=== PATIENT | female | born 1985 | race Caucasian/White ===

== ENCOUNTER → 2016-08-26 | Outpatient (CLI) | payer SELFPAY ==
[~2016-08-26] MED LIST: AGM875T PO; AMOX-358 PO; BIRTH CONTROL; BSP10T PO; BUTA1CAP39 PO; CELEXA; CYCL10TA9 PO; GABA-488 PO; HYDR-3812 PO; LEVE500T99 PO; MULT1CAP27 PO
--- NOTE | 2016-08-26 14:40 | Diagnostic Imaging Report ---
First trimester OB ultrasound. INDICATION: Dating. FINDINGS: There is a normal-appearing single intrauterine . An embryo is seen with cardiac activity at 169 beats per minute. The crown-rump length is at 10 weeks and 5 days. ABIMAEL is 03/19/17. The ovaries are from not demonstrated, likely obscured by bowel gas. IMPRESSION: Live single intrauterine . Dictated by: Dictated on workstation # [id number]
== END ==
LOC: RAD 13:33
PROVIDERS: ATTEND Family Medicine
DX: Z36 Encounter for antenatal screening of mother (principal); Z3A.10 10 weeks gestation of pregnancy
CPT/HCPCS: 76801

== ENCOUNTER → 2016-10-29 | Outpatient (CLI) | payer MEDICAID ==
[2016-10-30 07:28] LABS: HIV AG AB SCREEN Non-Reactive (Non-Reactive)
== END ==
LOC: LAB 09:32
PROVIDERS: ATTEND Family Medicine
DX: Z34.91 Encounter for supervision of normal pregnancy, unspecified, first trimester (principal); Z3A.13 13 weeks gestation of pregnancy
CPT/HCPCS: 36415; 84443; 86703; 87088; 87340

== ENCOUNTER → 2016-10-31 | Outpatient (CLI) | payer MEDICAID, OTHER ==
--- NOTE | 2016-10-31 13:10 | Diagnostic Imaging Report ---
INDICATION: survey. TECHNIQUE: Multiple real-time grayscale images were obtained over the gravid uterus. COMPARISON: 08/26/2016. FINDINGS: Single live intrauterine is again demonstrated at 20 weeks 2 days by sonographic measurements. Appropriate interval growth. EDC by today's ultrasound is 03/18/2017. presentation is cephalic. Normal amniotic fluid index. Grade 1 placenta is located posteriorly with no placenta previa. heart rate measures 155 beats per minute. Good visualization of the kidneys, bladder, stomach, brain, four-chamber heart, three-vessel cord and insertion, and extremities. The entire spine was not well visualized due to positioning. Recommend short-term sonographic followup. Biometrical measurements are as follows: Biparietal 4.70 cm, age 20 weeks 2 days. Head circumference 17.08 cm, age 19 weeks 5 days. Abdominal circumference 15.45 cm, age 20 weeks 5 days. Femur length 3.22 cm, age 20 weeks 1 days. Sonographic estimate age: 20 weeks 2 days. Sonographic estimated date of delivery: 03/18/2017. Estimated Weight: 344 gm (+/- 50 gm). LMP percentile: 54%. heart rate: 155 beats per minute. number: 1 of 1. IMPRESSION: Single live intrauterine at 20 weeks 2 days by sonographic measurements. Poor visualization of the spine due to positioning. Recommend short-term sonographic followup. The remainder of the anatomical survey appears within normal sonographic limits. Dictated by: Dictated on workstation # [id number]
== END ==
LOC: RAD 11:29
PROVIDERS: ATTEND Family Medicine
DX: Z36 Encounter for antenatal screening of mother (principal); Z3A.20 20 weeks gestation of pregnancy
CPT/HCPCS: 76805

== ENCOUNTER → 2016-12-18 | Outpatient (CLI) | payer MEDICAID, OTHER ==
--- NOTE | 2016-12-18 17:55 | Diagnostic Imaging Report ---
INDICATION: Incomplete anatomical evaluation on prior imaging. TECHNIQUE: Multiple, limited real-time grayscale images were obtained over the gravid uterus. COMPARISON: 10/31/2016. FINDINGS: Limited obstetrical sonogram imaging demonstrates a fetus to be in a cephalic presentation. Amount of amniotic fluid appearing to be unremarkable. cardiac activity at 146 beats per minute. The spine is visualized on current study and appears unremarkable. Additional anatomical assessment are not performed. Biometrical growth parameters are not performed. IMPRESSION: Single intrauterine in a cephalic presentation. Limited obstetrical sonogram demonstrates unremarkable appearance about the spine on followup. Dictated by: Dictated on workstation # [id number]
== END ==
LOC: RAD 14:20
PROVIDERS: ATTEND Family Medicine
DX: Z36 Encounter for antenatal screening of mother (principal); Z3A.00 Weeks of gestation of pregnancy not specified
CPT/HCPCS: 76816

== ENCOUNTER 2017-05-01 08:06 | Outpatient (CLI) | payer MEDICAID ==
[~2017-05-01] VITALS: Ht 157.5 cm; Wt 54.0 kg
[2017-05-01 08:23] VITALS: BP 112/67
[2017-05-01] MEDS ORDERED: DIVA250T2 PO (09:56)
[2017-05-01] MEDS ORDERED: FLUO20CA42 PO (09:56)
== END 2017-05-01 10:01 | disposition home or self-care (01) ==
LOC: PREOP 08:06
PROVIDERS: ATTEND Obstetrics & Gynecology
DX: Z01.818 Encounter for other preprocedural examination (principal); N81.4 Uterovaginal prolapse, unspecified; R32 Unspecified urinary incontinence; D64.9 Anemia, unspecified
CPT/HCPCS: 87081

== ENCOUNTER → 2017-05-04 | Day surgery (SDC) | payer MEDICAID ==
[~2017-05-04] VITALS: Ht 157.5 cm; Wt 54.0 kg
[~2017-05-04] MED LIST changes: +CATHETER FLUSH 10 ML SYR IV PRN; +DIVA250T2 PO; +FLUO20CA42 PO; +LACTATED RINGERS 1,000 ML IV PRN; +ceFAZolin 1 GM/NS 50 ML IVPB IV ONE
[2017-05-04 10:50] VITALS: BP 118/83
--- OUTSIDE RECORDS SUMMARY | 2017-05-04 10:56 | XMS REPORT ---
Author Author JACE LUTZ [facility] eClinicalWorks Address Unknown Phone Unavailable Care Team Providers Care Retail Grocer Name Role Phone JACE LUTZ Unavailable Allergies No Known Allergies Problems Problem Type Condition Code Onset Dates Condition Status Problem Thyroid disease 246.9 Active Problem Seizure 780.39 Active Problem Eye socket infection 376.00 Active Problem Bipolar disorder 296.80 Active Problem History of intravenous drug use in remission 305.93 Active Medications Medication Code System Code Instructions Start Date End Date Status Dosage Zofran ODT [facility] [address]-43 4 MG Orally every 6 hrs December 05, 2014 1 tablet on the tongue and allow to dissolve Results No Known Results Summary Purpose eClinicalWorks Submission
--- OUTSIDE RECORDS SUMMARY | 2017-05-04 10:56 | XMS REPORT | Clinical Summary ---
Author Author [facility] Address Unknown Phone Unavailable Allergies No Known Allergies Current Medications Prescription Sig. Disp. Refills Start End Date Status Date Multiple Vitamin take 1 tablet by oral 0 08/28/19 Active (MULTI-VITAMINS) TABS route every day with 11 food .reconcile (MEDICATION No Sig 1 0 11/20/19 Active LIST IMPORTED) 13 Active Problems Problem Noted Date Toxic diffuse goiter without mention of thyrotoxic crisis or storm Immunizations Name Dates Previously Given Next Due Influenza IIV3 PFree 02/22/2009 Tdap 01/29/2010 Social History Tobacco Use Types Packs/Day Years Used Date Current Every Day Smoker Comments: Smoking History Packs/day: Unknown/Cigarettes/1/2 pack Sex Assigned at Date Recorded Not on file Last Filed Vital Signs Vital Sign Reading Time Taken Blood Pressure 100/64 09/11/2010 1:50 PM CDT Pulse - - Temperature - - Respiratory Rate - - Oxygen Saturation - - Inhaled Oxygen - - Concentration Weight 45.8 kg (101 lb) 09/11/2010 1:50 PM CDT Height - - Body Mass Index - - Plan of Treatment Health Maintenance Due Date Last Done Comments Varicella Vaccines (1 of 09/25/2000 2 - 2 Dose Adolescent Series) CERVICAL CANCER SCREENING 06/27/2012 06/27/2009 Influenza Vaccine (#1) 2017 02/22/2009 DTaP,Tdap,and Td Vaccines 01/30/2020 01/29/2010 (2 - Td) Results Not on filefrom Last 3 Months
--- OUTSIDE RECORDS SUMMARY | 2017-05-04 10:56 | XMS REPORT ---
Author Author GAETANO DACOSTA Organization [facility] Address [address] [place] [address] Care Team Providers Care General Production Laborer Name Role Phone GAETANO DACOSTA Unavailable PROBLEMS Type Condition ICD9-CM Code [id number] Code Onset Dates Condition Status SNOMED Code Problem Thyroid disease E07.9 Active 08201850 Problem Anxiety F41.9 Active 91772345 Problem History of herpes genitalis Z86.19 Active 413492154 Problem History of intravenous drug use in remission Z87.898 Active 80548877 Problem Ruptured globe, right eye S05.31XA Active 817516795 Problem Seizure disorder G40.909 Active 539623248 Problem Bipolar disorder F31.9 Active 35662666 ALLERGIES Unknown Allergies SOCIAL HISTORY No smoking Hx information available PLAN OF CARE VITAL SIGNS MEDICATIONS Unknown Medications RESULTS No Results PROCEDURES No Known procedures IMMUNIZATIONS No Known Immunizations
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
--- OUTSIDE RECORDS SUMMARY | 2017-05-04 10:56 | XMS REPORT ---
Author Author CANDIE VYAS [facility] Address [address] [place] [address] Care Team Providers Care Salmon Troll Fisher Name Role Phone CANDIE VYAS Unavailable PROBLEMS Type Condition ICD9-CM Code [id number] Code Onset Dates Condition Status SNOMED Code Problem History of herpes genitalis Z86.19 Active 994428898 Problem Seizure disorder G40.909 Active 468569619 Problem Ruptured globe, right eye S05.31XA Active 479333979 Problem Thyroid disease E07.9 Active 08404689 Problem Bipolar disorder F31.9 Active 08920342 Problem History of intravenous drug use in remission Z87.898 Active 46449986 ALLERGIES Unknown Allergies SOCIAL HISTORY No smoking Hx information available PLAN OF CARE VITAL SIGNS MEDICATIONS Medication Instructions Dosage Frequency Start Date End Date Duration Status Acyclovir 400 MG Orally four times a day 1 tablet 6h 20 Jan, 2016 7 day (s) Active RESULTS No Results PROCEDURES No Known procedures IMMUNIZATIONS No Known Immunizations
--- OUTSIDE RECORDS SUMMARY | 2017-05-04 10:56 | XMS REPORT ---
Author Author LISSETTE DAVIS [facility] eClinicalWorks Address Unknown Phone Unavailable Care Team Providers Care Cut Order Hand Name Role Phone LISSETTE DAVIS Unavailable Allergies No Known Allergies Problems Problem Type Condition Code Onset Dates Condition Status Problem Seizure disorder G40.909 Active Problem Bipolar disorder F31.9 Active Problem History of herpes genitalis Z86.19 Active Problem Thyroid disease E07.9 Active Problem History of intravenous drug use in remission Z87.898 Active Problem Ruptured globe, right eye S05.31XA Active Medications No Known Medications Results No Known Results Summary Purpose eClinicalWorks Submission
--- OUTSIDE RECORDS SUMMARY | 2017-05-04 10:56 | XMS REPORT ---
Author Author ABEBE MCMAHON [facility] Address Unknown Phone Unavailable Care Team Providers Care Mechanical Design Engineer Name Role Phone ABEBE MCMAHON Unavailable Unavailable PROBLEMS Type Condition ICD9-CM Code [id number] Code Onset Dates Condition Status SNOMED Code Problem Bipolar disorder F31.9 Active 06679963 Problem History of intravenous drug use in remission Z87.898 Active 68498668 Problem Herpesviral infection, unspecified B00.9 Active 94345991 Problem Anxiety F41.9 Active 51671142 Problem Thyroid disease E07.9 Active 45951161 Problem Seizure disorder G40.909 Active 094857542 Problem History of herpes genitalis Z86.19 Active 871523786 Problem Ruptured globe, right eye S05.31XA Active 959749832 ALLERGIES Unknown Allergies SOCIAL HISTORY No smoking Hx information available PLAN OF CARE VITAL SIGNS MEDICATIONS Unknown Medications RESULTS No Results PROCEDURES No Known procedures IMMUNIZATIONS No Known Immunizations
--- OUTSIDE RECORDS SUMMARY | 2017-05-04 10:56 | XMS REPORT | Clinical Summary ---
Author Author [facility] Organization [facility] Address Unknown Phone Unavailable Care Team Providers Care Plastic Technician Name Role Phone PCP Unavailable Source Comments Some departments are not documenting in the electronic medical record. 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 Ruptured globe of right eye 09/30/2013 Ruptured globe of right eye 09/29/2013 Overview: Corneal laceration s/p repair Family History Medical History Relation Name Comments Cancer Maternal Grandmother Diabetes Maternal Grandmother Diabetes Mother Relation Name Status Comments Maternal Grandmother Mother Social History Tobacco Use Types Packs/Day Years Used Date Current Every Day Smoker Cigarettes 1 12 Smokeless Tobacco: Never Used Alcohol Use Drinks/Week oz/Week Comments Yes .25 Standard 0.0 drinks or equivalent Sex Assigned at Date Recorded Not on file Last Filed Vital Signs Vital Sign Reading Time Taken Blood Pressure 106/63 06/02/2014 10:02 AM QUILL COLLECTOR Pulse 58 12/30/2013 8:30 PM CDT Temperature 36.7 C (98.1 F) 12/30/2013 8:15 PM CDT Respiratory Rate - - Oxygen Saturation 97% 12/30/2013 8:30 PM CDT Inhaled Oxygen - - Concentration Weight 55.5 kg (122 lb 5.7 oz) 12/30/2013 1:56 PM CDT Height 154.9 cm (5' 1") 12/30/2013 1:56 PM CDT Body Mass Index 23.12 12/30/2013 1:56 PM CDT Plan of Treatment Health Maintenance Due Date Last Done Comments PHYSICAL (COMPREHENSIVE) 09/25/1994 EXAM PERTUSSIS VACCINE 09/25/1998 TETANUS VACCINE 09/25/2004 CERVICAL CANCER SCREENING 09/25/2008 INFLUENZA VACCINE 12/30/2016 Results Not on filefrom Last 3 Months
--- OUTSIDE RECORDS SUMMARY | 2017-05-04 10:56 | XMS REPORT ---
Author Author GAETANO DACOSTA Organization [facility] Address [address] [place] [address] Care Team Providers Care Program Scheduler Name Role Phone GAETANO DACOSTA Unavailable PROBLEMS Type Condition ICD9-CM Code [id number] Code Onset Dates Condition Status SNOMED Code Problem Ruptured globe, right eye S05.31XA Active 485131771 Problem Thyroid disease E07.9 Active 02799492 Problem Herpesviral infection, unspecified B00.9 Active 36347095 Problem Anxiety F41.9 Active 28305817 Problem Bipolar disorder F31.9 Active 96972194 Problem History of intravenous drug use in remission Z87.898 Active 89263981 Problem History of herpes genitalis Z86.19 Active 572130299 Problem Seizure disorder G40.909 Active 356407497 ALLERGIES Unknown Allergies SOCIAL HISTORY No smoking Hx information available PLAN OF CARE VITAL SIGNS MEDICATIONS Unknown Medications RESULTS No Results PROCEDURES No Known procedures IMMUNIZATIONS No Known Immunizations
--- OUTSIDE RECORDS SUMMARY | 2017-05-04 10:56 | XMS REPORT ---
Author Author NEISHA HILTON Organization eClinicalWorks Address Unknown Phone Unavailable Care Team Providers Care Microfiche Camera Operator Name Role Phone NEISHA HILTON CP Unavailable Allergies, Adverse Reactions, Alerts Substance Reaction Event Type N.K.D.A. Info Not Available Non Drug Allergy Problems Problem Type Condition ICD-9 Code Onset Dates Condition Status Assessment Impacted cerumen of right ear 380.4 Active Problem Thyroid disease 246.9 Active Problem Seizure 780.39 Active Problem Eye socket infection 376.00 Active Assessment Sinusitis 473.9 Active Assessment Otalgia of right ear 388.70 Active Problem Bipolar disorder 296.80 Active Problem History of intravenous drug use in remission 305.93 Active Medications Medication Code System Code Instructions Start Date End Date Status Dosage Augmentin [facility] [address]-60 875-125 MG Orally every 12 hrs Jan 22, 2015 Feb 01, 2015 1 tablet Antipyrine-Benzocaine [facility] [address]-61 5.4-1.4 % Otic PRN ear pain Dec 1 drop affected ear canal into affected ear Procedures Procedure Coding System Code Date Office Visit, Est Pt., Level 3 CPT-4 04945 Jan 22, 2015 Vital Signs Date/Time: Jan 22, 2015 Temperature 98.0 F Weight 149.7 lbs Height 63 in BMI 26.52 Index Blood Pressure Diastolic 72 mmHg Blood Pressure Systolic 110 mmHg Cardiac Monitoring Heart Rate 72 bpm Results No Known Results Summary Purpose eClinicalWorks Submission
--- OUTSIDE RECORDS SUMMARY | 2017-05-04 10:56 | XMS REPORT ---
Author Author KARI ALCOCER [facility] Address [address] [place] [address] Care Team Providers Care Outside Deliverer Name Role Phone KARI ALCOCER Unavailable PROBLEMS Type Condition ICD9-CM Code [id number] Code Onset Dates Condition Status SNOMED Code Problem Bipolar disorder F31.9 Active 30559961 Problem History of intravenous drug use in remission Z87.898 Active 85592165 Problem Herpesviral infection, unspecified B00.9 Active 59561690 Problem Anxiety F41.9 Active 06460798 Problem Thyroid disease E07.9 Active 48114290 Problem Seizure disorder G40.909 Active 556429142 Problem History of herpes genitalis Z86.19 Active 776038642 Problem Ruptured globe, right eye S05.31XA Active 114387513 ALLERGIES Substance Reaction Event Type Date Status N.K.D.A. Unknown Non Drug Allergy Jun, Unknown SOCIAL HISTORY No smoking Hx information available PLAN OF CARE VITAL SIGNS MEDICATIONS Unknown Medications RESULTS No Results PROCEDURES No Known procedures IMMUNIZATIONS No Known Immunizations
--- OUTSIDE RECORDS SUMMARY | 2017-05-04 10:57 | XMS REPORT ---
Author Author GAETANO DACOSTA [facility] Address [address] [place] [address] Care Team Providers Care Health Information Manager Name Role Phone GAETANO DACOSTA Unavailable PROBLEMS Type Condition ICD9-CM Code QYR97-AX Code Onset Dates Condition Status SNOMED Code Problem Ruptured globe, right eye S05.31XA Active 380867227 Problem Thyroid disease E07.9 Active 15706988 Problem Herpesviral infection, unspecified B00.9 Active 51027332 Problem Anxiety F41.9 Active 13068621 Problem Bipolar disorder F31.9 Active 00130592 Problem History of intravenous drug use in remission Z87.898 Active 48015561 Problem History of herpes genitalis Z86.19 Active 157708346 Problem Seizure disorder G40.909 Active 842908686 ALLERGIES Unknown Allergies SOCIAL HISTORY No smoking Hx information available PLAN OF CARE VITAL SIGNS MEDICATIONS Unknown Medications RESULTS Name Result Date Reference Range CBC 2016-05-19 WBC 10.5 3.4-10.8 RBC 4.82 3.77-5.28 Hemoglobin 15.0 11.1-15.9 Hematocrit 45.8 34.0-46.6 MCV 95 79-97 MCH 31.1 26.6-33.0 MCHC 32.8 31.5-35.7 RDW 13.0 12.3-15.4 Platelets 330 150-379 Neutrophils 80 Lymphs 16 Monocytes 4 Eos 0 Basos 0 Neutrophils (Absolute) 8.3 1.4-7.0 Lymphs (Absolute) 1.7 0.7-3.1 Monocytes(Absolute) 0.4 0.1-0.9 Eos (Absolute) 0.0 0.0-0.4 Baso (Absolute) 0.0 0.0-0.2 Immature Granulocytes 0 Immature Grans (Abs) 0.0 0.0-0.1 LIVER PANEL (LFT) 2016-05-19 Protein, Total, Serum 7.7 6.0-8.5 Albumin, Serum 4.7 3.5-5.5 Bilirubin, Total 0.2 0.0-1.2 Bilirubin, Direct 0.08 0.00-0.40 Alkaline Phosphatase, S 68 39-117 AST (SGOT) 14 0-40 ALT (SGPT) 8 0-32 BMP 2016-05-19 Glucose, Serum 94 65-99 BUN 10 6-20 Creatinine, Serum 0.62 0.57-1.00 eGFR If NonAfricn Am 123 >59 eGFR If Africn Am 142 >59 BUN/Creatinine Ratio 16 8-20 Sodium, Serum 141 134-144 Potassium, Serum 4.4 3.5-5.2 Chloride, Serum 101 96-106 Carbon Dioxide, Total 25 18-29 Calcium, Serum 10.0 8.7-10.2 PROCEDURES Procedure Date Ordered Related Diagnosis Body Site COMPLETE CBC W/AUTO DIFF WBC May 19, 2016 HEPATIC FUNCTION PANEL May 19, 2016 VENIPUNCT, ROUTINE* May 19, 2016 BASIC METABOLIC PANEL May 19, 2016 IMMUNIZATIONS No Known Immunizations
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
--- OUTSIDE RECORDS SUMMARY | 2017-05-04 10:57 | XMS REPORT ---
Author Author TALHA HOLT [facility] eClinicalWorks Address Unknown Phone Unavailable Care Team Providers Care School Operations Manager Name Role Phone TALHA HOLT CP Unavailable Allergies No Known Allergies Problems Problem Type Condition Code Onset Dates Condition Status Problem Thyroid disease 246.9 Active Problem Seizure 780.39 Active Problem Eye socket infection 376.00 Active Problem Bipolar disorder 296.80 Active Problem History of intravenous drug use in remission 305.93 Active Medications Medication Code System Code Instructions Start Date End Date Status Dosage Ortho-Cyclen (28) [facility] [address]-20 0.25-35 MG-MCG Orally Once a day Mar 1 tablet Results No Known Results Summary Purpose eClinicalWorks Submission
--- OUTSIDE RECORDS SUMMARY | 2017-05-04 10:57 | XMS REPORT ---
Author Author JACE LUTZ [facility] eClinicalWorks Address Unknown Phone Unavailable Care Team Providers Care Early Childhood Assistant Name Role Phone JACE LUTZ CP Unavailable Allergies, Adverse Reactions, Alerts Substance Reaction Event Type N.K.D.A. Info Not Available Non Drug Allergy Problems Problem Type Condition Code Onset Dates Condition Status Problem Thyroid disease 246.9 Active Problem Seizure 780.39 Active Problem Eye socket infection 376.00 Active Assessment Nausea & vomiting R11.2 Active Problem Bipolar disorder 296.80 Active Problem History of intravenous drug use in remission 305.93 Active Medications Medication Code System Code Instructions Start Date End Date Status Dosage Zofran ODT [facility] [address]-69 4 MG Orally every 6 hrs December 05, 2014 1 tablet on the tongue and allow to dissolve Pepcid [facility] [address]-92 20 MG Orally 2 times a day May 08, 2015 1 tablet at bedtime Procedures Procedure Coding System Code Date Office Visit, Est Pt., Level 3 CPT-4 52448 May 08, 2015 Vital Signs Date/Time: May 08, 2015 Temperature 98.3 F Weight 137.6 lbs Height 63 in BMI 24.37 Index Blood Pressure Diastolic 68 mmHg Blood Pressure Systolic 120 mmHg Cardiac Monitoring Heart Rate 72 bpm Results No Known Results Summary Purpose eClinicalWorks Submission
--- OUTSIDE RECORDS SUMMARY | 2017-05-04 10:57 | XMS REPORT ---
Author Author KARI ALCOCER Organization [facility] Address [address] [place] [address] Care Team Providers Care Event Planning Intern Name Role Phone KARI ALCOCER Unavailable PROBLEMS Type Condition ICD9-CM Code [id number] Code Onset Dates Condition Status SNOMED Code Problem Bipolar disorder F31.9 Active 91783397 Problem History of intravenous drug use in remission Z87.898 Active 58569076 Problem Herpesviral infection, unspecified B00.9 Active 48804846 Problem Anxiety F41.9 Active 26737571 Problem Thyroid disease E07.9 Active 93675639 Problem Seizure disorder G40.909 Active 046629549 Problem History of herpes genitalis Z86.19 Active 603964447 Problem Ruptured globe, right eye S05.31XA Active 455410861 ALLERGIES No Information SOCIAL HISTORY Never Assessed PLAN OF CARE VITAL SIGNS MEDICATIONS Unknown Medications RESULTS No Results PROCEDURES Procedure Date Ordered Result Body Site URINE TEST August 12, 2016 IMMUNIZATIONS No Known Immunizations MEDICAL (GENERAL) [...]
[2017-05-04 11:35] LABS: BASOPHILS # (AUTO) 0.1 10^3/uL (0.0-0.1); BASOPHILS % (AUTO) 1 % (0-10); EOSINOPHILS # (AUTO) 0.1 10^3/uL (0.0-0.3); EOSINOPHILS % (AUTO) 2 % (0-10); LYMPHOCYTES # (AUTO) 2.7 X 10^3 (1.0-4.0); LYMPHOCYTES % (AUTO) 34 % (12-44); MEAN CORPUSCULAR HEMOGLOBIN 29 PG (25-34); MEAN CORPUSCULAR HGB CONC 34 G/DL (32-36); MEAN CORPUSCULAR VOLUME 85 FL (80-99); MEAN PLATELET VOLUME 9.7 FL (7.4-10.4); MONOCYTES # (AUTO) 0.6 X 10^3 (0.0-1.0); MONOCYTES % (AUTO) 8 % (0-12); NEUTROPHILS # (AUTO) 4.4 X 10^3 (1.8-7.8); NEUTROPHILS % (AUTO) 56 % (42-75); PLATELET COUNT 397 10^3/uL (130-400); RED BLOOD COUNT 4.28 10^6/uL (4.35-5.85); RED CELL DISTRIBUTION WIDTH 15.6 % (10.0-14.5); WHITE BLOOD COUNT 7.9 10^3/uL (4.3-11.0)
== END | disposition home or self-care (01) ==
LOC: SDC 10:52
PROVIDERS: ATTEND Obstetrics & Gynecology
DX: N81.4 Uterovaginal prolapse, unspecified (principal); R32 Unspecified urinary incontinence; Z53.9 Procedure and treatment not carried out, unspecified reason
CPT/HCPCS: 36415; 80306; 84703; 85025; 86850; 86900; 86901

== ENCOUNTER → 2017-05-11 | Day surgery (SDC) | payer MEDICAID ==
[~2017-05-11] MED LIST changes: -LACTATED RINGERS 1,000 ML IV PRN; -ceFAZolin 1 GM/NS 50 ML IVPB IV ONE; +ceFAZolin INJECTION 1,000 MG in NS (IVPB) 50 ML IV ONE
--- OUTSIDE RECORDS SUMMARY | 2017-05-11 10:58 | XMS REPORT | Clinical Summary ---
Author Author [facility] Address Unknown Phone Unavailable Allergies No Known [...]
--- OUTSIDE RECORDS SUMMARY | 2017-05-11 10:59 | XMS REPORT | Clinical Summary ---
Author Author [facility] Organization [facility] Address Unknown Phone Unavailable Care Team Providers Care Engineering Tech Name Role Phone PCP Unavailable Source Comments Some departments are not documenting in the electronic medical record. If you do not see the information that you expected, contact Release of Information in the Health Information Management department at [phone] for further assistance in locating additional records.[facility] Allergies No Known Allergies Current Medications No [...] Taken Blood Pressure 106/63 06/02/2014 10:02 AM ASSEMBLER BILLIARD TABLE Pulse 58 12/30/2013 8:30 PM CDT Temperature [...]
== END | disposition home or self-care (01) ==
LOC: SDC 10:54
PROVIDERS: ATTEND Obstetrics & Gynecology
DX: N92.0 Excessive and frequent menstruation with regular cycle (principal); N39.3 Stress incontinence (female) (male); Z53.09 Procedure and treatment not carried out because of other contraindication
CPT/HCPCS: 80306; 84703

== ENCOUNTER → 2017-05-26 | Outpatient (CLI) | payer MEDICAID ==
[~2017-05-26] MED LIST changes: +ARIP5TAB12 PO; -CATHETER FLUSH 10 ML SYR IV PRN; +DOCU100C37 PO; +IBUP-1780 PO; +OXYC-465 PO; -ceFAZolin INJECTION 1,000 MG in NS (IVPB) 50 ML IV ONE
== END ==
LOC: LABNPT 14:33
PROVIDERS: ATTEND Obstetrics & Gynecology
DX: Z77.29 Contact with and (suspected) exposure to other hazardous substances (principal)
CPT/HCPCS: 80306

== ENCOUNTER 2017-05-27 10:58 | Day surgery (SDC) | payer MEDICAID ==
[2017-05-27] VITALS (7 sets, daily range): BP systolic 106–130; BP diastolic 60–73
[~2017-05-27] VITALS: Ht 157.5 cm; Wt 54.0 kg
[~2017-05-27 10:58] MED LIST changes: +ACHD5005 PO; -ARIP5TAB12 PO; -DOCU100C37 PO; -HYDR-3812 PO; -IBUP-1780 PO; -OXYC-465 PO
--- OUTSIDE RECORDS SUMMARY | 2017-05-27 11:01 | XMS REPORT | Clinical Summary ---
Author Author [facility] Address Unknown Phone Unavailable Allergies No Known [...]
--- OUTSIDE RECORDS SUMMARY | 2017-05-27 11:01 | XMS REPORT | Clinical Summary ---
Author Author [facility] Organization [facility] Address Unknown Phone Unavailable Care Team Providers Care Intermediate Card Tender Name Role Phone PCP Unavailable Source Comments Some departments are not documenting in the electronic medical record. If you do not see the information that you expected, contact Release of Information in the Health Information Management department at [phone] for further assistance in locating additional records.[facility] Allergies No Known Allergies Current Medications No [...] Taken Blood Pressure 106/63 06/02/2014 10:02 AM MILLER SUPERVISOR Pulse 58 12/30/2013 8:30 PM CDT Temperature [...]
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
[2017-05-27] MEDS ORDERED: ceFAZolin INJECTION 1,000 MG in NS (IVPB) 50 ML IV ONE (11:15)
[2017-05-27] MEDS ORDERED: BUP/EPI 0.5% 1:200,000 (MARCAINE) 10ML VIAL IJ ONE (11:16)
[2017-05-27] MEDS ORDERED: ESTRADIOL VAGINAL CREAM 42.5 GM (ESTRACE) VG ONE (11:16)
[2017-05-27] MEDS ORDERED: LIDOCAINE JELLY 2% (XYLOCAINE) 5 ML TUBE ONE (11:47)
[2017-05-27] MEDS: LACTATED RINGERS 1,000 ML IV PRN ×2 (12:00→14:15)
[2017-05-27] MEDS ORDERED: ROCURONIUM 50 MG/5 ML (ZEMURON) VIAL IV ONE (12:28)
[2017-05-27] MEDS ORDERED: ONDANSETRON 4 MG/2 ML (SDV) Z0FRAN ONE (12:28)
[2017-05-27] MEDS ORDERED: DEXAMETHASONE 10 MG/ML (DECADRON) 1 ML VIAL ONE (12:28)
[2017-05-27] MEDS ORDERED: proPOfol 200 MG/20 ML (DIPRIVAN) VIAL IV ONE ×2 (12:28→16:20)
[2017-05-27] MEDS ORDERED: SEVOFLURANE (ULTANE) 15 ML INHAL SOLN ONE ×2 (12:28→16:19)
[2017-05-27] MEDS ORDERED: fentaNYL INJECTION 250 MCG/5 ML AMP ONE (12:29)
[2017-05-27] MEDS ORDERED: MIDAZOLAM 2 MG/2 ML (VERSED) VIAL ONE (12:29)
[2017-05-27] MEDS ORDERED: ARIP5TAB12 PO ×2 (13:17→13:21)
--- NOTE | 2017-05-27 13:45 | Progress Note-Pre Operative ---
Pre-Operative Progress Note H&P Reviewed The H&P was reviewed, patient examined and no changes noted. Date Seen by Provider: May 27, 2017 Time Seen by Provider: 13:44 Date H&P Reviewed: May 27, 2017 Time H&P Reviewed: 13:45 Pre-Operative Diagnosis: uterovaginal prolapse with stress urinary incontinence /menorrhagia ALISSON HERNDON MD May 27, 2017 1:45 pm
--- NOTE | 2017-05-27 13:46 | Progress Note-Post Operative ---
Post-Operative Progess Note Surgeon (s)/Ssrs Report Developer (s) Surgeon ALISSON HERNDON MD Ssrs Report Developer: Velma Mariee Pre-Operative Diagnosis uterovaginal prolapse with stress urinary incontinence/menorrhagia Post-Operative Diagnosis same pathology pending Procedure & Operative Findings Date of Procedure 05/27/17 Procedure Performed/Findings T LH with BS an anterior posterior vaginal repair with enterocele repair Anesthesia Type GETA Estimated Blood Loss Estimated blood loss (mL): 100 cc Specimens/Packing Specimens Removed uterus with the fallopian tubes Packing: Kerlix in the vagina ALISSON HERNDON MD May 27, 2017 13:46
[2017-05-27] MEDS ORDERED: ONDANSETRON 4 MG/2 ML (SDV) Z0FRAN IVP PRN ×2 (14:00→16:15)
[2017-05-27] MEDS ORDERED: WATER (STERILE) FOR INJ 10 ML BTL INJ ONE (14:00)
[2017-05-27] MEDS ORDERED: BENZOCAINE/MENTHOL (DERMOPLAST) 56 ML CAN TP PRN (14:00)
[2017-05-27] MEDS ORDERED: MEPERIDINE (DEMEROL) INJ 100 MG/ML IM PRN (14:00)
[2017-05-27] MEDS ORDERED: ESTROGENS CONJ IV 25 MG/5 ML (PREMARIN) VIAL IVP ONE (14:00)
[2017-05-27] MEDS ORDERED: PATIENT MAY USE OWN MEDS, ALL MC SCH (14:00)
[2017-05-27] MEDS ORDERED: PROMETHAZINE INJ 25 MG/ML (PHENERGAN) AMP IM PRN (14:00)
[2017-05-27] MEDS ORDERED: morphine INJ 10 MG/ML 1ML (SYR OR VIAL) ONE (14:57)
[2017-05-27] MEDS ORDERED: MEPERIDINE (DEMEROL) INJ 50 MG/ML ONE (14:57)
[2017-05-27] MEDS: morphine INJ 10 MG/ML 1ML (SYR OR VIAL) IVP PRN ×2 (16:05→16:20)
[2017-05-27] MEDS ORDERED: HYDROmorphone (DILAUDID) 2 MG/ML VIAL IVP PRN (16:15)
[2017-05-27] MEDS ORDERED: MEPERIDINE (DEMEROL) INJ 50 MG/ML IVP PRN (16:15)
[2017-05-27] MEDS: KETOROLAC 30 MG/ML VIAL IVP SCH ×2 (16:18→21:45)
[2017-05-27] MEDS ORDERED: PROMETHAZINE INJ 25 MG/ML (PHENERGAN) AMP ONE (18:26)
[2017-05-27] MEDS ORDERED: MEPERIDINE (DEMEROL) INJ 100 MG/ML ONE (18:26)
[2017-05-27] MEDS: D5 LR IV SOLUTION 1,000 ML IV SCH (21:46)
--- NOTE | 2017-05-27 23:00 | OPERATIVE REPORT ---
DATE OF SERVICE: 05/27/2017 PREOPERATIVE DIAGNOSES: 1. Uterovaginal prolapse. 2. Menorrhagia. POSTOPERATIVE DIAGNOSES: 1. Uterovaginal prolapse. 2. Menorrhagia. OPERATIVE PROCEDURE: Total laparoscopic hysterectomy with bilateral salpingectomies followed by anterior and posterior vaginal repairs with enterocele repair. OPERATIVE DESCRIPTION: With the patient in the supine position under satisfactory general anesthesia, she was repositioned in dorsal lithotomy position in the [facility] and prepped and draped in the usual fashion for abdominal and vaginal surgery. The urinary bladder was drained via Romero catheter to dependent drainage. A weighted speculum was placed in the posterior fornix of the vagina, cervix exposed and grasped anteriorly with a single-toothed tenaculum. Uterus was sounded to 13 cm with the uterine sound. The cervix was then serially dilated with Malick dilators to accommodate a Nhi II manipulator, which was placed in the usual manner using an 8 cm uterine probe and a 30 mm colpotomy ring. Sutures of #1 Vicryl were placed at 3 and 9 o'clock position to secure the uterine and cervix to the manipulator. The patient was brought in low dorsal lithotomy position with the speculum and tenaculum were removed from the vagina. A 12 mm incision was made 3 cm superior to the umbilicus. Veress needle was placed through that incision into the abdominal cavity and correct placement confirmed with a water drop test. The abdomen was insufflated with 2.4 liters of carbon dioxide. Then, the Veress needle was removed and a 12 mm Optiview laparoscopic port placed under direct vision. Ports of 8 mm were placed 9 cm lateral to the umbilicus on each side. All three incision sites had been infiltrated with 0.25% Marcaine with epinephrine prior to incision. The patient was placed in Trendelenburg allowing the bowels to spill up out of the pelvis. The abdominal wall was transilluminated to place the 8 mm ports laterally. The bowel was spilled spontaneously above the pelvis into Trendelenburg. The operative instruments were placed and the pelvis was examined. Using a vessel sealer on the right and a bipolar fenestrated grasper, both ovaries were examined. They were normal in appearance. There was some clubbing of the left fallopian tube. Otherwise, ovaries looked normal. The uterus was somewhat mottled in appearance consistent with adenomyosis. The laparoscope was rotated. The appendix was seen, it was normal vermiform appendix. The right ureter was clearly seen peristalse. The left ureter was eventually seen clearly peristalsing, but this was after actually performing the hysterectomy. Decision was made to go ahead with intended repair. The right fallopian tube was grasped and elevated. The vessel sealer was used to clamp, cauterize and divide the mesosalpinx over to the uteroovarian pedicle. The uteroovarian pedicle was then clamped, cauterized and divided as was the round ligament, the broad ligaments and eventually the cardinal ligament allowing for retention of the right ovary and removal of the left fallopian tube. Same procedure was performed on the left with the same result. Again, at this point, visualization was very very clear, but the ureter was not seemed clearly to peristalse. It did appear to be somewhat deep in the pelvis. I opened the peritoneum and did not see it initially. It was certain that I had not compromise ureter at this point, so I went ahead with the procedure with the intent to look for the ureter later. The anterior lower uterine segment and peritoneum then was divided using monopolar aditya. The bladder was carefully dissected down off the lower uterine segment and colpotomy incision made at 12 o'clock position on the cervix and continued circumferentially clockwise and counterclockwise until the entire colpotomy ring was exposed. The uterus with the tubes still attached was removed through the vagina. The vaginal cuff was then closed with 2 sutures of V-Loc barbed sutures starting first from the right angle and continuing to the midpoint, then from the left angle to the midpoint taking care to include the uterine vessel pedicles in the closure. Again, the ureter was not seemed to peristalse at this point, but I felt comfortable that we were well away from it. With the cuff closed and no bleeding and no significant blood inside, then attention was turned to identifying the left ureter. The left pelvis was somewhat obscured by adhesions of the sigmoid to the left pelvic side wall. These had been taken down. The sigmoid was then retracted medially and the side wall retracted laterally and then the ureter was seen quite in the pelvis on the lower side wall peristalsing clearly. There was no dilation of the ureter. At this point, I am comfortable with the findings. The procedure was terminated. The operative instruments were removed under direct vision as were the ports. The abdomen was evacuated and insufflating gas, and the patient brought out of Trendelenburg. The skin incisions were stapled after first closing the fascia at the umbilical incision with a [id number] suture of 2-0 Vicryl. Attention was then now turned to the anterior and posterior vaginal repairs. Rony clamp was placed on the anterior vaginal wall just proximal to the midpoint. Midline was opened with Metzenbaum scissors. The bladder was carefully dissected off the muscularis of the vagina back to the pubic rami bilaterally. Endopelvic fascia and bladder wall were plicated with 2-0 Vicryl sutures elevating the bladder and lengthening the urethra. The redundant anterior vaginal muscularis mucosa was then removed sharply. The vaginal wall was closed with a running locked suture of 3-0 Vicryl Rapide. Good support was evident. Posterior repair was affected by placing Rony clamps on the perineum and the hymenal ring at 5 and 7 o'clock position. The inverted triangle of skin was removed from the perineal body in an upright triangle from the posterior vaginal floor. The rectovaginal space was entered sharply, dissected bluntly to the apex of the vagina where it was explored finding a small enterocele. That enterocele was reduced and plicated with 2-0 Pursestring suture. The rectovaginal space was obliterated with additional sutures of 2-0 Vicryl. The perineal body was restored with 2-0 Vicryl and then redundant posterior vaginal wall muscularis mucosa was removed sharply. Vaginal wall was closed with a running locked suture of 3-0 Vicryl Rapide as well. That closure was continued past the hymenal ring down on the perineal body, then back up subcutaneous to the hymenal ring where the suture was tied. Digital rectal exam confirmed no stricture or stenosis of the rectum and no sutures into or through the rectal mucosa. The vagina was filled with Estrace vaginal cream and a pack of Kerlix gauze was placed. Sponge and needle counts were correct at this point. Estimated blood loss was around 100 mL. The patient tolerated the procedure well and was uneventfully awakened from her general anesthesia and transferred to the recovery room in stable condition. Job ID: [id number] DocumentID: [id number] Dictated Date: 05/27/2017 15:54:09 City Manager Date: 05/27/2017 23:00:18 Dictated By: ALISSON HERNDON MD
[2017-05-28 00:18] VITALS: BP 114/55
[2017-05-28] MEDS: KETOROLAC 30 MG/ML VIAL IVP SCH ×2 (03:38→13:27)
[2017-05-28 03:40] VITALS: BP 110/64
[2017-05-28] MEDS: oxyCODONE/APAP 10/325MG (PERCOCET 10) TABLET PO PRN ×3 (06:15→14:37)
[2017-05-28 08:00] VITALS: BP 108/60
--- NOTE | 2017-05-28 08:12 | Progress Note-Standard ---
Standard Progress Note Progress Notes/Assess & Plan Date Seen by Provider: May 28, 2017 Time Seen by Provider: 08:11 Progress/Assessment & Plan this patient is without complaint. She is ambulating, tolerating by mouth well , has good pain control. Her Romero catheter is been removed and bladder trial is ongoing. Vital Signs Date Time Temp Pulse Resp B/P (MAP) Pulse Ox O2 Delivery O2 Flow Rate FiO2 05/28/17 03:40 98.1 56 16 110/64 (79) 99 Room Air 05/28/17 00:18 98.2 75 16 114/55 (74) 98 Room Air 05/27/17 21:12 14 98 0.00 05/27/17 20:47 98 0.00 05/27/17 20:45 100 0.00 05/27/17 20:00 100 1.00 05/27/17 19:52 Nasal Cannula 1.00 05/27/17 19:50 100 1.00 05/27/17 19:30 97.8 79 14 112/63 (79) 100 Nasal Cannula 2.00 05/27/17 19:00 81 14 106/60 (75) 100 Nasal Cannula 2.00 05/27/17 18:30 63 16 118/65 (82) 100 Nasal Cannula 2.00 05/27/17 18:00 62 16 113/60 (77) 100 Nasal Cannula 2.50 05/27/17 17:30 61 16 130/73 (92) 100 Nasal Cannula 2.50 05/27/17 17:20 98.8 66 16 116/68 (84) 100 Nasal Cannula 2.50 05/27/17 15:49 Nasal Cannula 05/27/17 11:01 99.0 72 18 111/67 (82) 99 Room Air I & O 05/28/17 07:00 Intake Total 3630 ml Output Total 865 ml Balance 2765 ml vital signs are stable. Patient is afebrile. Abdomen is benign. Extreme show no clubbing cyanosis. There is no Homans sign. Assessment and plan is operative day number 1 doing well. Plan is for routine convalescence care today with discharge home when patient is ambulating , voiding,c oral intake, and pain is controlled with oral medication. Final Diagnosis uterovaginal prolapse ALISSON HERNDON MD May 28, 2017 8:12 am
[2017-05-28] MEDS ORDERED: IBUP-1780 PO (08:13)
[2017-05-28] MEDS ORDERED: DOCU100C37 PO (08:13)
[2017-05-28] MEDS ORDERED: OXYC-465 PO (08:13)
--- NOTE | 2017-05-28 08:15 | Discharge Instructions ---
Discharge Instructions Discharge Medications New, Converted or Re-Newed RX: RX on Chart Patient Instructions Patient Instructions: as directed Return to The Hospital For: as directed Activity & Diet Discharge Diet: No Restrictions Activity as Tolerated: No Orders-Post D/C & Referrals Follow Up Appt: return to clinic on Friday, June 02, 2017 at 930 a.m. for staple removal Call to make follow up appt. for patient in 4 weeks. Activity: Rest for 24 hours, than as tolerated. Wound Care: May remove Band-Aid tomorrow. Replace as desired. Keep incisions clean and dry. Wash daily with soap and water. Please call in RX to patient pharmacy. Diet: As tolerated-Clear Liquids only if nauseated. Tomorrow, may shower or tub bathe as desired. No driving for 24 hours, no alcoholic beverages for 24 hours, and nothing per vagina (no tampons, douching, or intercourse) for 2 weeks. Patient to return to the clinic as soon as possible for: Temperature greater than 101F, Severe Pain, Foul discharge from incision or vagina, Excessive Bleeding (more than a period). ALISSON HERNDON MD May 28, 2017 8:15 am
[2017-05-28] MEDS ORDERED: DOCUSATE SODIUM 100 MG (COLACE) CAP PO SCH (09:00)
[2017-05-28] MEDS ORDERED: IBUPROFEN 800 MG (MOTRIN) TAB PO ONE (10:22)
[2017-05-28] MEDS: IBUPROFEN 800 MG (MOTRIN) TAB PO SCH ×2 (10:40→17:16)
[2017-05-28 11:00] VITALS: BP 103/62
[2017-05-28] MEDS ORDERED: SIMETHICONE 80 MG (MYLICON) CHEW PO PRN (13:20)
[2017-05-28] MEDS: D5 LR IV SOLUTION 1,000 ML IV SCH ×2 (13:32→15:34)
--- NOTE | 2017-05-28 13:43 | Anesthesia-General Post-Op ---
General Patient Condition Mental Status/LOC: Same as Preop Cardiovascular: Satisfactory Nausea/Vomiting: Absent Respiratory: Satisfactory Pain: Controlled Complications: Absent Post Op Complications Complications None Follow Up Care/Instructions Patient Instructions None needed. Anesthesia/Patient Condition Patient Condition Patient is doing well, no complaints, stable vital signs, no apparent adverse anesthesia problems. No complications reported per nursing. D/C home per [facility] Criteria: No AUSTIN MENESES CRNA May 28, 2017 13:43
== END 2017-05-28 18:06 | disposition home or self-care (01) ==
LOC: SDC 10:58 → WS 17:05 → SDC 05-28 18:06
PROVIDERS: ATTEND Obstetrics & Gynecology
DX: N81.4 Uterovaginal prolapse, unspecified (principal); N92.0 Excessive and frequent menstruation with regular cycle; N72 Inflammatory disease of cervix uteri; R56.9 Unspecified convulsions; F17.210 Nicotine dependence, cigarettes, uncomplicated; Z79.899 Other long term (current) drug therapy
CPT/HCPCS: 84703; 86850; 86900; 86901; 87081; 88307; 94664

== ENCOUNTER 2017-06-16 12:12 | Emergency (ER) | payer MEDICAID ==
[~2017-06-16] VITALS: Ht 157.5 cm; Wt 49.9 kg
[~2017-06-16 12:12] MED LIST changes: +ARIP5TAB12 PO; +DOCU100C37 PO; +IBUP-1780 PO; +OXYC-465 PO
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
[2017-06-16 12:55] LABS: BILIRUBIN,URINE NEGATIVE (NEGATIVE); CLARITY,URINE CLEAR; COLOR,URINE YELLOW; GLUCOSE, URINE (UA) NEGATIVE (NEGATIVE); KETONES,URINE NEGATIVE (NEGATIVE); LEUKOCYTE ESTERASE ,URINE NEGATIVE (NEGATIVE); NITRITE,URINE NEGATIVE (NEGATIVE); PH,URINE 8 (5-9); PROTEIN,URINE NEGATIVE (NEGATIVE); UROBILINOGEN,URINE NORMAL (NORMAL)
[2017-06-16] MEDS ORDERED: IOHEXOL 350 MG/ML 100 ML (OMNIPAQUE 350) VIAL IV ONE (13:00)
[2017-06-16] MEDS ORDERED: NS 100 ML (IVPB) BAG IV ONE (13:00)
[2017-06-16 13:03] LABS: BACTERIA,URINE NEGATIVE /HPF
[2017-06-16 14:14] LABS: BASOPHILS # (AUTO) 0.1 10^3/uL (0.0-0.1); BASOPHILS % (AUTO) 1 % (0-10); EOSINOPHILS # (AUTO) 0.4 10^3/uL (0.0-0.3); EOSINOPHILS % (AUTO) 5 % (0-10); HEMATOCRIT 38 % (35-52); HEMOGLOBIN 12.8 G/DL (11.5-16.0); LYMPHOCYTES # (AUTO) 2.7 X 10^3 (1.0-4.0); LYMPHOCYTES % (AUTO) 35 % (12-44); MEAN CORPUSCULAR HEMOGLOBIN 30 PG (25-34); MEAN CORPUSCULAR HGB CONC 34 G/DL (32-36); MEAN CORPUSCULAR VOLUME 88 FL (80-99); MEAN PLATELET VOLUME 9.4 FL (7.4-10.4); MONOCYTES # (AUTO) 0.3 X 10^3 (0.0-1.0); MONOCYTES % (AUTO) 4 % (0-12); NEUTROPHILS # (AUTO) 4.3 X 10^3 (1.8-7.8); NEUTROPHILS % (AUTO) 55 % (42-75); PLATELET COUNT 485 10^3/uL (130-400); RED BLOOD COUNT 4.33 10^6/uL (4.35-5.85); RED CELL DISTRIBUTION WIDTH 14.1 % (10.0-14.5); WHITE BLOOD COUNT 7.8 10^3/uL (4.3-11.0)
[2017-06-16] MEDS ORDERED: oxyCODONE/APAP 5/325MG (PERCOCET 5) TABLET PO STA (14:28)
--- NOTE | 2017-06-16 14:31 | Diagnostic Imaging Report ---
PROCEDURE: CT head without contrast. TECHNIQUE: Multiple contiguous axial images were obtained through the brain without the use of intravenous contrast. DATE: June 16, 2017. COMPARISON: CT head April 28, 2015. MRI brain November 17, 2014. INDICATION: 31-year-old female, fall. Dizziness. 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 The ventricles and cerebral spinal fluid spaces are of normal size and configuration for the patient's age. There is no mass effect or midline shift. There is no acute intracranial hemorrhage. There is no abnormal extra-axial fluid collection. The frontal sinuses are hypoplastic. The additional visualized portions of the paranasal sinuses, mastoid air cells, and middle ears are well aerated. IMPRESSION: 1. No identified acute intracranial abnormality. Dictated by: Dictated on workstation # [id number]
[2017-06-16 14:37] LABS: ALANINE AMINOTRANSFERASE 13 U/L (0-55); ALBUMIN 4.1 GM/DL (3.2-4.5); ALKALINE PHOSPHATASE 72 U/L (40-136); BILIRUBIN,TOTAL 0.4 MG/DL (0.1-1.0); BUN/CREATININE RATIO 19; CALCIUM 9.2 MG/DL (8.5-10.1); CARBON DIOXIDE 24 MMOL/L (21-32); CHLORIDE 105 MMOL/L (98-107); GFR ESTIMATED > 60; GLUCOSE 91 MG/DL (70-105); POTASSIUM 3.9 MMOL/L (3.6-5.0); SODIUM 139 MMOL/L (135-145); TOTAL PROTEIN 7.1 GM/DL (6.4-8.2)
--- NOTE | 2017-06-16 15:30 | Diagnostic Imaging Report ---
PROCEDURE: CT abdomen and pelvis with contrast. TECHNIQUE: Multiple contiguous axial images were obtained through the abdomen and pelvis after administration of intravenous contrast. DATE: June 16, 2017. COMPARISON: CT chest, abdomen, and pelvis, April 19, 2016. INDICATION: 31-year-old female, fall yesterday. Pain at level of the incisions relating to hysterectomy occurring three weeks ago. FINDINGS: The visualized portions of the lung bases are clear. The heart is not enlarged. There is no pericardial effusion. The liver is normal in size and contour. There is no identified liver lesion. The main, right, and left portal veins are patent. The gallbladder is unremarkable. There is no intrahepatic or extrahepatic bile duct dilation. The main pancreatic duct is not grossly dilated. Unremarkable appearance of the pancreatic parenchyma. There are splenic calcifications which may relate to sequela of prior granulomatous disease. The spleen is not enlarged. The adrenal glands are unremarkable. Unremarkable appearance of the renal parenchyma. The urinary collecting systems are not distended. There is no identified renal or ureteral stone. The urinary bladder is unremarkable. The uterus is not seen, compatible with provided history of hysterectomy. There is a [id number] amount of free pelvic fluid with low attenuation of the pelvic fluid measuring approximately 10 Hounsfield units. There is stool throughout the colon. The intestinal tract is not grossly distended. The appendix is not well seen. There are no secondary findings to specifically suggest acute appendicitis. There is no free intraperitoneal air. There is no drainable fluid collection. There is a circumaortic left renal vein. There is no identified abnormally enlarged lymph node in the abdomen or pelvis which meets CT size criteria for adenopathy. There is a 2 mm sclerotic lesion in the left femoral head which is not specific but may relate to benign bone island. This is stable dating back to at least April 19, 2016, CT. There is no identified acute bony abnormality. IMPRESSION: CT ABDOMEN AND PELVIS. 1. No identified acute abnormality within the abdomen or pelvis. 2. Getwu-iu-jnket amount of simple-appearing pelvic fluid. 3. No findings to suggest acute blood product in the pelvis or other acute hematoma. Dictated by: Dictated on workstation # [id number]
[2017-06-16] MEDS ORDERED: ACHD5005 PO (15:51)
[2017-06-16 16:00] VITALS: BP 110/69
[2017-06-16] MEDS ORDERED: ORPH100T PO (16:09)
== END 2017-06-16 16:08 | disposition home or self-care (01) ==
LOC: EDUNIT# 12:12 → ER 12:15
DX: S09.90XA Unspecified injury of head, initial encounter (principal); G40.909 Epilepsy, unspecified, not intractable, without status epilepticus; E05.90 Thyrotoxicosis, unspecified without thyrotoxic crisis or storm; F41.9 Anxiety disorder, unspecified; F32.9 Major depressive disorder, single episode, unspecified; F17.210 Nicotine dependence, cigarettes, uncomplicated; Z90.710 Acquired absence of both cervix and uterus; Z87.448 Personal history of other diseases of urinary system; W00.9XXA Unspecified fall due to ice and snow, initial encounter
CPT/HCPCS: 36415; 70450; 74177; 80053; 81000; 85025